=== PATIENT | female | born 1970 ===

== ENCOUNTER 2022-04-26 04:56 | Day surgery (SDC) | payer OTHER ==
[~2022-04-26] VITALS: Ht 167.6 cm; Wt 78.5 kg
[2022-04-26] MEDS ORDERED: PERCOCET 5-3251 EACH PO (09:30)
[2022-04-26] MEDS ORDERED: IBU600 MG PO (09:31)
== END 2022-04-26 13:50 | disposition home or self-care (01) ==
LOC: CIR.AMB 04:56
PROVIDERS: ATTEND Obstetrics & Gynecology
DX: N84.0 Polyp of corpus uteri (principal); D27.0 Benign neoplasm of right ovary; Z20.822 Contact with and (suspected) exposure to COVID-19; G43.909 Migraine, unspecified, not intractable, without status migrainosus; K21.9 Gastro-esophageal reflux disease without esophagitis